=== PATIENT | female | born 1995 | race Caucasian/White ===

== ENCOUNTER 2025-06-04 02:53 | Emergency (ER) | payer OTHER ==
[~2025-06-04] VITALS: Ht 157.5 cm; Wt 59.1 kg
[2025-06-04 03:27] LABS: PLATELET COUNT (AUTO) 263 K/uL (150-450); RED BLOOD CELL COUNT(AUTO) 4.75 MIL/uL (4.00-5.20); RED CELL DISTRIBUTION WIDTH 15.0 % (11.5-14.5); WHITE BLOOD COUNT (AUTO) 6.1 K/uL (4.5-11.0)
[2025-06-04] MEDS: KETOROLAC TROMETHAMINE 30 MG/ML VIAL IVP ONE (03:29)
[2025-06-04] MEDS: SODIUM CHLORIDE 0.9% 1,000 ML IV ONE (03:29)
[2025-06-04] MEDS: ONDANSETRON HCL 4 MG/2 ML VIAL IVP ONE (03:29)
[2025-06-04 03:33] LABS: CALCIUM, TOTAL 9.1 mg/dL (8.8-10.5); CREATININE 0.69 mg/dL (0.60-1.30); GLOMERULAR FILTR. RATE CALC > 60 mL/min (>60); GLUCOSE,RANDOM 101 mg/dL (70-110); SODIUM SERUM 136 mmol/L (136-145); UREA NITROGEN, BLOOD 9 mg/dL (7-18)
[2025-06-04 03:38] LABS: ASPARTATE AMINOTRANSFERASE 31.0 U/L (15-37); TOTAL PROTEIN, SERUM 7.8 g/dL (6.4-8.2)
[2025-06-04 03:43] VITALS: BP 133/89; PULSE 68; RESP 16; TEMP 97.705256; O2SAT 100
[2025-06-04] MEDS ORDERED: ONDA-104 PO (04:36)
== END 2025-06-04 05:30 | disposition home or self-care (01) ==
LOC: EMS 03:07
DX: R11.0 Nausea (principal); Z88.8 Allergy status to other drugs, medicaments and biological substances
CPT/HCPCS: 99284; 96374; 96375; 80048; 80076; 83690; 85025; 36415; J1885; J2405; J7030